=== PATIENT | male | born 1970 | race Caucasian/White ===

== ENCOUNTER → 2022-11-03 10:36 | Outpatient (CLI) | payer OTHER, SELFPAY ==
[2022-11-03 13:47] LABS: COVID-19 CEPHEID 4-PLEX PCR Negative (Negative); Influenza A - CEPHEID Flu A NEGATIVE (NEGATIVE); Influenza B - CEPHEID Flu B NEGATIVE (NEGATIVE); Respiratory Syncytial Virus POSITIVE (Negative)
== END ==
PROVIDERS: Visit Provider Nurse Practitioner Family
DX: J06.9 Acute upper respiratory infection, unspecified (principal); Z20.822 Contact with and (suspected) exposure to COVID-19
CPT/HCPCS: 0241U

== ENCOUNTER → 2022-11-03 10:43 | Outpatient (CLI) | payer OTHER, SELFPAY ==
--- NOTE | 2022-11-03 10:49 | DI.RAD.S_ITS ---
PROCEDURE: XR CHEST 2V INDICATIONS: Cough TECHNIQUE: 2 views of the chest were acquired. COMPARISON: None. FINDINGS: Surgical changes and devices: None. Lungs and pleura: Lungs are clear. No pleural effusions or pneumothorax. Mediastinum: Mediastinal contours are normal. Heart size is normal. Bones and chest wall: No suspicious bony abnormalities. Soft tissues appear unremarkable. IMPRESSION: No focal infiltrates are seen. Dictated by: Jaxson Lema M.D. on 11/03/2022 at 11:21 Approved by: Jaxson Lema M.D. on 11/03/2022 at 11:21
== END ==
PROVIDERS: Referring Provider Nurse Practitioner Family; Visit Provider Nurse Practitioner Family
DX: R05.9 Cough, unspecified (principal); J06.9 Acute upper respiratory infection, unspecified; Z20.822 Contact with and (suspected) exposure to COVID-19
CPT/HCPCS: 0241U; 71046

== ENCOUNTER 2023-05-16 13:51 | Emergency (ER) | payer OTHER, SELFPAY ==
[2023-05-16 13:55] VITALS: BP 132/85; PULSE 98; RESP 16; TEMP 36.6; O2SAT 97; BMI 28.7
--- NOTE | 2023-05-16 14:21 | DI.RAD.S_ITS ---
PROCEDURE: XR TIBIA FUBULA RT 2V INDICATIONS: DISTAL RLE PAIN TECHNIQUE: 2 views of the tibia and fibula were acquired. COMPARISON: None. FINDINGS: Bones: No definite fractures or dislocations. Chronic appearing ossification noted over the posterior, inferior aspect of the cuboid seen on the lateral view. No suspicious bony lesions. Soft tissues: No suspicious soft tissue calcifications or masses. IMPRESSION: Tibia/fibula without acute fracture or dislocation. If there are persistent symptoms or clinical suspicion for pathology, then repeat radiographs or advanced imaging (CT or MRI) may be considered for further evaluation. Dictated by: James Pulliam M.D. on 05/16/2023 at 15:40 Approved by: James Pulliam M.D. on 05/16/2023 at 15:41
--- NOTE | 2023-05-16 14:22 | ED.EXTPRO ---
HPI - Extremity Problem General Chief complaint: Extremity Problem,Nontraumatic Stated complaint: hurt leg T-3 Time Seen by Provider: 05/16/23 13:55 Source: patient Mode of arrival: Wheelchair History of Present Illness HPI Narrative: 53-year-old male with no reported past medical history presents for red area on his right leg. Began approximately 3 days ago, patient states that he has been moving a lot of equipment around the house and he may have i bumped it on something, but he can not remember. It is painful, swollen, now making it difficult for him to walk due to the pain. Denies fevers, lacerations, abrasions, other complaints. Related Data Previous Rx's Medication Instructions Recorded albuterol sulfate 90 mcg/actuation 2 puff inhalation Q6H PRN 11/03/22 aerosol inhaler shortness of breath or wheezing #6.7 grams benzonatate 100 mg capsule 100 mg PO BID PRN cough #20 caps 11/03/22 inhalational spacing device #1 ea 11/03/22 (Aerochamber MV spacer) cephalexin 500 mg capsule 500 mg PO QID #20 caps 05/16/23 hydrocodone 5 mg-acetaminophen 325 1 tab PO Q6H PRN pain #10 tabs 05/16/23 mg tablet Allergies Allergy/AdvReac Type Severity Reaction Status Date / Time No Known Drug Allergies Allergy Unverified 11/03/22 10:10 Review of Systems Review of Systems Narrative: CONSTITUTIONAL- Denies: fever, chills, fatigue HEENT- Denies: sore throat, nosebleed, vision changes RESPIRATORY- Denies: shortness of breath, cough, wheezing CARDIAC- Denies: chest pain, edema, orthopnea GI- Denies: abdominal pain, nausea, vomiting, constipation, diarrhea - Denies: frequency, dysuria, hematuria, flank pain MSK- Reports: extemity pain (RLE) Denies: extremity swelling, joint pain, joint swelling SKIN-reports: Redness, swelling (RLE) Denies: rash, itching, burn NEUROLOGICAL- Denies: headache, numbness, weakness, dizziness PSYCHIATRIC- Denies: anxiety, depression, suicidal ideation, homicidal ideation Patient History Medical History (Updated 05/16/23 @ 15:46 by Allegra Johnson MD) Herpes Surgical History (Updated 10/22/19 @ 20:52 by Roxie Meyers) Anesthesia History of appendectomy (~1999) Family History (Updated 10/22/19 @ 20:53 by Roxie Meyers) Father Fever Mother Cancer Social History Smoking Status: Unknown if ever smoked Smoking Status: Unknown if ever smoked Substance Use Type: does not use Exam Initial Vital Signs Initial Vital Signs: Vital Signs Temperature 97.9 F 05/16/23 13:55 Pulse Rate 98 H 05/16/23 13:55 Respiratory Rate 16 05/16/23 13:55 Blood Pressure 132/85 05/16/23 13:55 Pulse Oximetry 97 05/16/23 13:55 Oxygen Delivery Method Room Air 05/16/23 13:55 Const: Awake, alert, no acute distress, nontoxic appearing Eyes: PERRL, EOMI, conjunctiva normal ENT: Atraumatic, dentition normal, mucous membranes moist Cardiac: regular rate, regular rhythm RESP: unlabored, clear bilaterally, no wheezing GI: Atraumatic, soft, nontender, nondistended, no rebound, no guarding MSK: Atraumatic, full range of motion, pulses equal Skin: Warm, Dry, intact, Area of erythema anterior R tib/fib region. Not circumferential Neuro: AO x3, CN II-XII grossly intact, moves all extremities Psych: affect normal, mood normal, not suicidal, not homicidal Course Course Course Narrative: Well-appearing patient with erythematous region on distal anterior tib-fib right leg. Warm to touch, no obvious laceration, abrasion, other traumatic skin opening. Pulses are intact, equal, there is no circumferential erythema. XR reviewed, negative for acute findings. Patient advised that this is likely cellulitis. He was counseled to draw margin around the red area and to monitor closely for signs of extension beyond the drawn margins. He was given a prescription for antibiotics, he denies known history of MRSA and has no known MRSA risk factors. In addition he was given short course of pain medications. ED return precautions discussed at bedside. Patient expressed understanding of the plan and is in agreement at this time. All questions answered at the time of discharge. Orders Ordered: ED Orders 05/16/23 14:21 XR tibia fibula RT 2V Stat Vital Signs Vital signs: Vital Signs - 8 hr 05/16/23 13:55 Temperature 97.9 F Pulse Rate 98 H Respiratory Rate 16 Blood Pressure 132/85 Pulse Oximetry 97 Oxygen Delivery Method Room Air Discharge Plan Departure Patient Disposition: Home Clinical Impression: Cellulitis Qualifiers: Site of cellulitis: extremity Site of cellulitis of extremity: lower extremity Laterality: right Qualified Code(s): L03.115 - Cellulitis of right lower limb Instructions: DI for Cellulitis -- Adult Activity Restrictions/Additional Instructions: DRAW A BORDER AROUND THE RED AREA ON YOUR LEG. TAKE ALL ANTIBIOTICS PRESCRIBED. IF YOU ARE NOT NOTICING AN IMPROVEMENT AFTER 48 HOURS OR THE REDNESS IS WORSENING PLEASE COME BACK FOR REPEAT EVALUATION. Prescriptions: New cephalexin 500 mg capsule 500 mg PO QID Qty: 20 0RF hydrocodone-acetaminophen 5-325 mg tablet 1 tab PO Q6H PRN (Reason: pain) Qty: 10 0RF No Action albuterol sulfate 90 mcg/actuation HFA aerosol inhaler 2 puff inhalation Q6H PRN (Reason: shortness of breath or wheezing) Qty: 6.7 0RF benzonatate 100 mg capsule 100 mg PO BID PRN (Reason: cough) Qty: 20 0RF (DME) Aerochamber MV Spacer See Rx Instructions .ROUTE .MEDSUPPLY Qty: 1 0RF Rx Instructions: As directed Referrals: Miscellaneous,Doctor, MD [Primary Care Provider] - Stand Alone Forms: Patient Portal/API
[2023-05-16 15:56] VITALS: BP 140/78; PULSE 80; RESP 16; TEMP 36.6; O2SAT 98
== END 2023-05-16 15:56 | disposition home or self-care (01) ==
PROVIDERS: Emergency Provider Emergency Medicine
DX: L03.115 Cellulitis of right lower limb (principal)
CPT/HCPCS: 73590; 99281; 99283